=== PATIENT | female | born 1985 | race African-American/Black ===

== ENCOUNTER 2025-04-10 00:08 | Emergency (ER) | payer MEDICAID ==
[~2025-04-10] VITALS: Ht 172.7 cm; Wt 75.0 kg
[2025-04-10 00:23] VITALS: TEMP 36.8
[2025-04-10] MEDS: ALBUTEROL (0.083%) 2.5MG/3ML NEB HHN SCH (00:48)
[2025-04-10] MEDS: IPRATROPIUM BROMIDE (0.02%) 0.5MG/2.5ML NEB HHN STA (00:49)
[2025-04-10 00:56] VITALS: PULSE 75; RESP 20; O2SAT 96
[2025-04-10] MEDS: PREDNISONE 20MG TABLET PO STA (01:15)
[2025-04-10] MEDS ORDERED: P50 MT (01:48)
[2025-04-10] MEDS ORDERED: ALBU18HF2 IH (01:48)
[2025-04-10] MEDS ORDERED: ACET-2708 MT (01:48)
[2025-04-10 02:13] VITALS: TEMP 97.9
[2025-04-10] MEDS: ACETAMINOPHEN 325MG TABLET PO ONE (02:13)
[2025-04-10 02:24] VITALS: BP 118/72; PULSE 87; RESP 12; O2SAT 100
== END 2025-04-10 02:39 | disposition home or self-care (01) ==
LOC: ER 00:08 → EDBEDREQ 00:39 → ER 02:39
DX: J45.901 Unspecified asthma with (acute) exacerbation (principal)
CPT/HCPCS: 94640; 99283; J7512; Z7610 ×6; 94664; 98960; A4606

== ENCOUNTER 2025-04-14 03:44 | Emergency (ER) | payer MEDICAID ==
[~2025-04-14] VITALS: Ht 172.7 cm; Wt 89.0 kg
[~2025-04-14 03:44] MED LIST: ACET-2708 MT; ALBU18HF2 IH; P50 MT
[2025-04-14 03:46] VITALS: TEMP 36.7
[2025-04-14] MEDS: PREDNISONE 20MG TABLET PO ONE (04:44)
[2025-04-14 05:00] VITALS: PULSE 99; RESP 20; O2SAT 97
[2025-04-14] MEDS: ALBUTEROL (0.083%) 2.5MG/3ML NEB HHN ONE (05:03)
[2025-04-14] MEDS: IPRATROPIUM BROMIDE (0.02%) 0.5MG/2.5ML NEB HHN ONE (05:03)
[2025-04-14] MEDS ORDERED: ALBU90AE INH (05:29)
[2025-04-14] MEDS ORDERED: P50 PO (05:29)
[2025-04-14 05:39] VITALS: BP 111/56; PULSE 91; RESP 17; O2SAT 99
[2025-04-14 05:43] LABS: HCG SCREEN NEGATIVE
== END 2025-04-14 04:49 | disposition home or self-care (01) ==
LOC: ER 03:44
DX: J45.901 Unspecified asthma with (acute) exacerbation (principal); I10 Essential (primary) hypertension; F17.210 Nicotine dependence, cigarettes, uncomplicated; Z79.52 Long term (current) use of systemic steroids
CPT/HCPCS: 84703; 71045; 94640; 93005; 99284; J7512; Z7610 ×4; 94664